=== PATIENT | female | born 1935 | race African-American/Black ===

== ENCOUNTER 2018-09-04 09:26 | Inpatient (IN) | payer MEDICARE, MEDICAID ==
[2018-09-04] VITALS (11 sets, daily range): BP systolic 98–190; BP diastolic 34–85
[~2018-09-04] VITALS: Ht 160 cm; Wt 85.3 kg
[~2018-09-04 09:26] MED LIST: HEPARIN SODIUM 1,000 UNIT/1ML VIAL IV ONE
[2018-09-04 11:40] LABS: CHLORIDE 110 mEq/L (98-107)
[2018-09-04 11:42] LABS: BASOPHILS % 0.8 % (0.0-2.0); EOSINOPHILS % 1.7 % (0.0-5.0); HEMATOCRIT. 36.8 % (36.0-48.0); HEMOGLOBIN. 11.9 g/dL (12.0-16.0); MEAN CORPUSCULAR HEMOGLOBIN 27.3 pg (28.0-32.0); MEAN CORPUSCULAR VOLUME 84.3 fL (81.0-99.0); MEAN PLATELET VOLUME 9.4 fl (7.4-10.4); MONOCYTES % 8.4 % (2.0-8.0); NEUTROPHILS % 48.1 % (40.0-76.0); PLATELET 272 x1000/uL (130-400); RED BLOOD CELL COUNT 4.36 mill/uL (4.2-5.4); RED CELL DISTRIBUTION WIDTH 14.5 % (11.6-14.6)
[2018-09-04] MEDS ORDERED: IOHEXOL-300 100 ML BOTTLE ONE (12:15)
[2018-09-04] MEDS ORDERED: LIDOCAINE HCL 1% 20ML VIAL (Pyxis) INJ ONE (12:16)
[2018-09-04] MEDS ORDERED: IODIXANOL 320MG/ML 100 ML BOTTLE IV ONE (12:16)
[2018-09-04] MEDS ORDERED: FERR325T6 PO (12:35)
[2018-09-04] MEDS ORDERED: GABA-531 PO (12:35)
[2018-09-04] MEDS ORDERED: AMLO10TA80 PO (12:35)
[2018-09-04] MEDS ORDERED: MIDAZOLAM HCL 2 MG/2 ML VIAL ONE (12:39)
[2018-09-04] MEDS ORDERED: LOSA25TA12 PO (12:39)
[2018-09-04] MEDS ORDERED: CLOP75TA16 PO (12:39)
[2018-09-04] MEDS ORDERED: FENTANYL CITRATE/PF 50MCG/ML 2ML VIAL ONE (12:40)
[2018-09-04] MEDS ORDERED: ASPIRIN 325MG TABLET ONE (13:35)
[2018-09-04] MEDS ORDERED: CLOPIDOGREL 75MG TABLET ONE (13:35)
[2018-09-04] MEDS ORDERED: ONDANSETRON HCL 4MG/2ML INJ IV PRN (13:45)
[2018-09-04] MEDS ORDERED: ATROPINE SULFATE 1MG/10ML SYR IV PRN (13:45)
[2018-09-04] MEDS: ACETAMINOPHEN 325MG TABLET PO PRN (20:36)
[2018-09-05] VITALS (9 sets, daily range): BP systolic 96–140; BP diastolic 50–71
[2018-09-05 05:50] LABS: BASOPHILS % 0.7 % (0.0-2.0); EOSINOPHILS % 1.6 % (0.0-5.0); HEMATOCRIT. 30.9 % (36.0-48.0); HEMOGLOBIN. 10.2 g/dL (12.0-16.0); LYMPHOCYTES % 28.4 % (20.0-50.0); MEAN CORPUSCULAR HEMOGLOBIN 27.7 pg (28.0-32.0); MEAN CORPUSCULAR VOLUME 83.7 fL (81.0-99.0); MEAN PLATELET VOLUME 9.3 fl (7.4-10.4); NEUTROPHILS % 60.3 % (40.0-76.0); PLATELET 219 x1000/uL (130-400); RED BLOOD CELL COUNT 3.69 mill/uL (4.2-5.4); RED CELL DISTRIBUTION WIDTH 14.1 % (11.6-14.6)
[2018-09-05 05:59] LABS: CHLORIDE 109 mEq/L (98-107)
[2018-09-05] MEDS ORDERED: CLOPIDOGREL 75MG TABLET PO SCH (09:00)
[2018-09-05] MEDS ORDERED: ASPIRIN 325MG TABLET PO SCH (09:00)
[2018-09-05] MEDS: ACETAMINOPHEN 325MG TABLET PO PRN (09:06)
== END 2018-09-05 15:54 | disposition home or self-care (01) | DRG 253 ==
LOC: CCL 09:26 → 3WST 09:27
PROVIDERS: ADMIT Specialist; ATTEND Specialist
PROC: 047L35Z Dilation of Left Femoral Artery with Two Drug-eluting Intraluminal Devices, Percutaneous Approach (ICD-10-PCS; principal; 2018-09-04)
PROC: B41G1ZZ Fluoroscopy of Left Lower Extremity Arteries using Low Osmolar Contrast (ICD-10-PCS; 2018-09-04)
DX: E11.51 Type 2 diabetes mellitus with diabetic peripheral angiopathy without gangrene (principal); D62 Acute posthemorrhagic anemia; I25.10 Atherosclerotic heart disease of native coronary artery without angina pectoris; I70.202 Unspecified atherosclerosis of native arteries of extremities, left leg; I15.0 Renovascular hypertension; Z79.84 Long term (current) use of oral hypoglycemic drugs; Z91.5 Personal history of self-harm
CPT/HCPCS: 36415; 37226; 75710; 80048; 85347; C1725; C1760; C1769; C1876; C1893; C1894; J1644; J2250; J3010; J3490; Q9967

== ENCOUNTER 2018-10-03 06:07 | Inpatient (IN) | payer MEDICARE, MEDICAID ==
[~2018-10-03] VITALS: Ht 160 cm; Wt 84.5 kg
[2018-10-03] VITALS (7 sets, daily range): BP systolic 110–143; BP diastolic 51–71
[~2018-10-03 06:07] MED LIST changes: +AMLO10TA80 PO; +CLOP75TA16 PO; +FERR325T6 PO; +GABA-531 PO; -HEPARIN SODIUM 1,000 UNIT/1ML VIAL IV ONE; +LOSA25TA12 PO
[2018-10-03] MEDS ORDERED: ERGO400C PO (07:54)
[2018-10-03] MEDS ORDERED: ASPI-1158 PO (07:54)
[2018-10-03] MEDS ORDERED: IODIXANOL 320MG/ML 100 ML BOTTLE IV ONE ×2 (07:58→10:09)
[2018-10-03] MEDS ORDERED: IOHEXOL-300 100 ML BOTTLE ONE (07:58)
[2018-10-03] MEDS ORDERED: LIDOCAINE HCL 1% 20ML VIAL (Pyxis) INJ ONE (07:58)
[2018-10-03] MEDS ORDERED: FENTANYL CITRATE/PF 50MCG/ML 2ML VIAL ONE (08:41)
[2018-10-03] MEDS ORDERED: MIDAZOLAM HCL 2 MG/2 ML VIAL ONE (08:41)
[2018-10-03] MEDS ORDERED: CLOPIDOGREL 75MG TABLET ONE (10:43)
[2018-10-03] MEDS ORDERED: ASPIRIN 325MG TABLET ONE (10:43)
[2018-10-03] MEDS ORDERED: ONDANSETRON HCL 4MG/2ML INJ IV PRN (11:00)
[2018-10-03] MEDS ORDERED: ATROPINE SULFATE 1MG/10ML SYR IV PRN (11:00)
[2018-10-03] MEDS ORDERED: ACETAMINOPHEN 325MG TABLET PO PRN (11:00)
[2018-10-03] MEDS ORDERED: HEPARIN SODIUM 1,000 UNIT/1ML VIAL IV ONE (14:05)
[2018-10-04 00:10] VITALS: BP 117/57
[2018-10-04 02:00] VITALS: BP 129/72
[2018-10-04 04:00] VITALS: BP 117/62
[2018-10-04 06:00] VITALS: BP 142/65
[2018-10-04 06:44] LABS: BASOPHILS % 0.7 % (0.0-2.0); EOSINOPHILS % 1.2 % (0.0-5.0); HEMATOCRIT. 32.3 % (36.0-48.0); HEMOGLOBIN. 10.6 g/dL (12.0-16.0); LYMPHOCYTES % 29.9 % (20.0-50.0); MEAN CORPUSCULAR HEMOGLOBIN 27.4 pg (28.0-32.0); MEAN CORPUSCULAR VOLUME 83.5 fL (81.0-99.0); MEAN PLATELET VOLUME 9.9 fl (7.4-10.4); MONOCYTES % 9.3 % (2.0-8.0); NEUTROPHILS % 58.9 % (40.0-76.0); PLATELET 231 x1000/uL (130-400); RED BLOOD CELL COUNT 3.87 mill/uL (4.2-5.4); RED CELL DISTRIBUTION WIDTH 14.4 % (11.6-14.6)
[2018-10-04 06:52] LABS: CHLORIDE 107 mEq/L (98-107)
[2018-10-04 08:24] VITALS: BP 105/53
[2018-10-04] MEDS ORDERED: ASPIRIN 325MG TABLET PO SCH (09:00)
[2018-10-04] MEDS ORDERED: CLOPIDOGREL 75MG TABLET PO SCH (09:00)
[2018-10-04 10:29] VITALS: BP_SYST 105; BP_SYST 106; BP_DIAS 53; BP_DIAS 56
== END 2018-10-04 11:54 | disposition home or self-care (01) | DRG 253 ==
LOC: CCL 06:07 → 3WST 06:08
PROVIDERS: ADMIT Specialist; ATTEND Specialist
PROC: B41F1ZZ Fluoroscopy of Right Lower Extremity Arteries using Low Osmolar Contrast (ICD-10-PCS; principal; 2018-10-03)
PROC: 047K3DZ Dilation of Right Femoral Artery with Intraluminal Device, Percutaneous Approach (ICD-10-PCS; 2018-10-03)
PROC: 047T34Z Dilation of Right Peroneal Artery with Drug-eluting Intraluminal Device, Percutaneous Approach (ICD-10-PCS; 2018-10-03)
DX: E11.51 Type 2 diabetes mellitus with diabetic peripheral angiopathy without gangrene (principal); I70.92 Chronic total occlusion of artery of the extremities; I70.211 Atherosclerosis of native arteries of extremities with intermittent claudication, right leg; D63.8 Anemia in other chronic diseases classified elsewhere; E88.81 Metabolic syndrome and other insulin resistance; I11.9 Hypertensive heart disease without heart failure; I15.0 Renovascular hypertension; I25.10 Atherosclerotic heart disease of native coronary artery without angina pectoris; I70.1 Atherosclerosis of renal artery; Z79.02 Long term (current) use of antithrombotics/antiplatelets; Z79.82 Long term (current) use of aspirin
CPT/HCPCS: 36415; 37226; 37230; 75710; 80048; 82962; 85347; C1714; C1725; C1760; C1769; C1874; C1876; C1887; C1893; C1894; J1644; J2250; J3010; J3490; Q9967

== ENCOUNTER 2018-11-07 08:04 | Day surgery (SDC) | payer MEDICARE, MEDICAID ==
[~2018-11-07] VITALS: Ht 160 cm; Wt 76.7 kg
[~2018-11-07 08:04] MED LIST changes: +ASPI-1158 PO; +ERGO400C PO
[2018-11-07] MEDS ORDERED: IODIXANOL 320MG/ML 100 ML BOTTLE IV ONE (09:13)
[2018-11-07] MEDS ORDERED: LIDOCAINE HCL 1% 20ML VIAL (Pyxis) INJ ONE (09:13)
[2018-11-07] MEDS ORDERED: ATROPINE SULFATE 0.1MG/ML 10ML DISP.SYRIN ONE (09:25)
[2018-11-07] MEDS ORDERED: FENTANYL CITRATE/PF 50MCG/ML 2ML VIAL ONE (09:26)
[2018-11-07] MEDS ORDERED: MIDAZOLAM HCL 2 MG/2 ML VIAL ONE (09:26)
[2018-11-07] MEDS ORDERED: ONDANSETRON HCL 4MG/2ML INJ IV PRN (11:30)
[2018-11-07] MEDS ORDERED: ATROPINE SULFATE 1MG/10ML SYR IV PRN (11:30)
[2018-11-07] MEDS ORDERED: ACETAMINOPHEN 325MG TABLET PO PRN (11:30)
[2018-11-07] MEDS ORDERED: HEPARIN SODIUM 1,000 UNIT/1ML VIAL IV ONE (16:41)
== END 2018-11-07 16:00 | disposition home or self-care (01) ==
LOC: CCL 08:04
PROVIDERS: ATTEND Specialist
DX: I65.21 Occlusion and stenosis of right carotid artery (principal); I10 Essential (primary) hypertension; I70.1 Atherosclerosis of renal artery; I25.10 Atherosclerotic heart disease of native coronary artery without angina pectoris; E78.5 Hyperlipidemia, unspecified; E11.51 Type 2 diabetes mellitus with diabetic peripheral angiopathy without gangrene; E88.81 Metabolic syndrome and other insulin resistance
CPT/HCPCS: 36222; 36252; 82962; 99152; C1725; C1760; C1769; C1893; J1644; J2250; J3010; J3490; Q9967; J0461; G0500

== ENCOUNTER 2019-08-29 09:36 | Emergency (ER) | payer MEDICARE, MEDICAID ==
[~2019-08-29] VITALS: Ht 160 cm; Wt 74.0 kg
[~2019-08-29 09:36] MED LIST changes: -CLOP75TA16 PO; +CLOP75TA4 PO; -GABA-531 PO; -LOSA25TA12 PO; +LOSA25TA26 PO
[2019-08-29] MEDS ORDERED: FAMOTIDINE 20MG/2ML VIAL IV STA (11:01)
[2019-08-29] MEDS ORDERED: MORPHINE SULFATE 4 MG/ML CPJ (NOT FOR IM USE) IV STA (11:01)
[2019-08-29] MEDS ORDERED: ONDANSETRON HCL 4MG/2ML INJ IV STA (11:01)
[2019-08-29] MEDS ORDERED: SODIUM CHLORIDE 0.9% 1,000 ML IV ONE (11:01)
[2019-08-29 11:32] LABS: BASOPHILS % 0.7 % (0.0-2.0); EOSINOPHILS % 1.5 % (0.0-5.0); HEMATOCRIT. 32.7 % (36.0-48.0); LYMPHOCYTES % 40.3 % (20.0-50.0); MEAN CORPUSCULAR HEMOGLOBIN 28.6 pg (28.0-32.0); MEAN CORPUSCULAR VOLUME 84.8 fL (81.0-99.0); MEAN PLATELET VOLUME 9.4 fl (7.4-10.4); MONOCYTES % 10.7 % (2.0-8.0); NEUTROPHILS % 46.8 % (40.0-76.0); PLATELET 222 x1000/uL (130-400); RED BLOOD CELL COUNT 3.85 mill/uL (4.2-5.4); RED CELL DISTRIBUTION WIDTH 13.9 % (11.6-14.6)
[2019-08-29 11:46] LABS: CHLORIDE 106 mEq/L (98-107)
[2019-08-29 11:47] LABS: CLARITY URINE CLEAR (CLEAR); COLOR URINE YELLOW (YELLOW); KETONES URINE NEGATIVE (NEGATIVE); LEUKOCYTE ESTERASE URINE 1+ (NEGATIVE); NITRITE URINE NEGATIVE (NEGATIVE); OCCULT BLOOD URINE 2+ (NEGATIVE); PH URINE 6.5 (4.5-8.0); PROTEIN URINE NEGATIVE (NEGATIVE); SPECIFIC GRAVITY URINE 1.021 (1.005-1.030)
[2019-08-29 12:07] LABS: PROTHROMBIN TIME 10.3 sec (9.6-11.0)
[2019-08-29] MEDS ORDERED: CEFTRIAXONE 1 G PREMIX 50 ML IV ONE (12:45)
[2019-08-29 13:43] VITALS: BP 118/53
== END 2019-08-29 14:02 | disposition home or self-care (01) ==
LOC: ER 09:36
DX: N39.0 Urinary tract infection, site not specified (principal); I11.9 Hypertensive heart disease without heart failure; E78.00 Pure hypercholesterolemia, unspecified; Z98.890 Other specified postprocedural states; Z79.899 Other long term (current) drug therapy; Z95.5 Presence of coronary angioplasty implant and graft
CPT/HCPCS: 36415; 71045; 76705; 80053; 81003; 83690; 84484; 85025; 85610; 87086; 93005; 96365; 96375; 99284; J0696; J2405; J3490; J7030

== ENCOUNTER → 2020-05-03 | Outpatient (CLI) | payer MEDICARE, MEDICAID | END | disposition home or self-care (01) | LOC: LAB 09:48 | PROVIDERS: ATTEND Specialist | DX: R05 Cough (principal); Z20.828 Contact with and (suspected) exposure to other viral communicable diseases | CPT/HCPCS: C9803; U0003 ==

== ENCOUNTER 2020-05-05 06:10 | Inpatient (IN) | payer MEDICARE, MEDICAID ==
[~2020-05-05] VITALS: Ht 160 cm; Wt 78.9 kg
[2020-05-05] VITALS (8 sets, daily range): BP systolic 119–143; BP diastolic 50–67
[2020-05-05] MEDS ORDERED: MIDAZOLAM HCL 2 MG/2 ML VIAL ONE (08:00)
[2020-05-05] MEDS ORDERED: FENTANYL CITRATE/PF 50MCG/ML 2ML VIAL ONE (08:00)
[2020-05-05] MEDS ORDERED: IODIXANOL 320MG/ML 100 ML BOTTLE IV ONE (08:02)
[2020-05-05] MEDS ORDERED: LIDOCAINE HCL 1% 20ML VIAL (Pyxis) INJ ONE (08:02)
[2020-05-05] MEDS ORDERED: IOHEXOL-300 100 ML BOTTLE ONE (09:21)
[2020-05-05] MEDS ORDERED: CLOPIDOGREL 75MG TABLET ONE (09:49)
[2020-05-05] MEDS ORDERED: ASPIRIN 325MG TABLET ONE (09:49)
[2020-05-05] MEDS ORDERED: HEPARIN SODIUM 1,000 UNIT/1ML VIAL IV ONE (10:00)
[2020-05-05] MEDS ORDERED: ATROPINE SULFATE 1MG/10ML SYR IV PRN (10:00)
[2020-05-05] MEDS ORDERED: ACETAMINOPHEN 325MG TABLET PO PRN (10:00)
[2020-05-05] MEDS ORDERED: HYDROCODONE/ACETAMINOPHEN 5/325MG TABLET PO PRN (11:15)
[2020-05-05] MEDS ORDERED: GABAPENTIN 300MG CAPSULE PO SCH (20:00)
[2020-05-06] VITALS (7 sets, daily range): BP systolic 104–128; BP diastolic 55–64
[2020-05-06 07:14] LABS: BASOPHILS % 0.5 % (0.0-2.0); EOSINOPHILS % 1.5 % (0.0-5.0); HEMATOCRIT. 29.3 % (36.0-48.0); HEMOGLOBIN. 9.7 g/dL (12.0-16.0); MEAN CORPUSCULAR HEMOGLOBIN 28.7 pg (28.0-32.0); MEAN CORPUSCULAR VOLUME 86.2 fL (81.0-99.0); MONOCYTES % 10.1 % (2.0-8.0); NEUTROPHILS % 58.9 % (40.0-76.0); PLATELET 199 x1000/uL (130-400); RED CELL DISTRIBUTION WIDTH 14.9 % (11.6-14.6)
[2020-05-06 07:36] LABS: CHLORIDE 112 mEq/L (98-107)
[2020-05-06] MEDS ORDERED: MEDICATION NOT ON FORMULARY EA (Ferrous Sulfate 325 MG) PO SCH (09:00)
[2020-05-06] MEDS ORDERED: ASPIRIN 325MG TABLET PO SCH (09:00)
[2020-05-06] MEDS ORDERED: AMLODIPINE 10MG TABLET PO SCH (09:00)
[2020-05-06] MEDS ORDERED: CLOPIDOGREL 75MG TABLET PO SCH (09:00)
[2020-05-06] MEDS ORDERED: FERROUS SULFATE 325MG TABLET PO SCH (09:00)
[2020-05-06] MEDS ORDERED: ERGOCALCIFEROL 400 UNIT PO SCH (09:00)
[2020-05-06] MEDS ORDERED: CHOLECALCIFEROL (VIT D3) 400 UNIT TABLET PO SCH (09:00)
[2020-05-06] MEDS ORDERED: LOSARTAN POTASSIUM 25 MG TABLET PO SCH (09:00)
== END 2020-05-06 11:27 | disposition home or self-care (01) | DRG 253 ==
LOC: CCL 06:10 → 3WST 06:11
PROVIDERS: ADMIT Specialist; ATTEND Specialist
PROC: 047K3EZ Dilation of Right Femoral Artery with Two Intraluminal Devices, Percutaneous Approach (ICD-10-PCS; principal; 2020-05-05)
PROC: B41F1ZZ Fluoroscopy of Right Lower Extremity Arteries using Low Osmolar Contrast (ICD-10-PCS; 2020-05-05)
DX: I70.201 Unspecified atherosclerosis of native arteries of extremities, right leg (principal); G45.1 Carotid artery syndrome (hemispheric); E78.5 Hyperlipidemia, unspecified; I11.9 Hypertensive heart disease without heart failure; I15.0 Renovascular hypertension; I25.10 Atherosclerotic heart disease of native coronary artery without angina pectoris; I70.1 Atherosclerosis of renal artery; R73.9 Hyperglycemia, unspecified
CPT/HCPCS: 36415; 37226; 75710; 80048; 82962; 85025; 85347; C1725; C1760; C1769; C1876; C1893; C1894; J1644; J2250; J3010; J3490; Q9967; C9803-CS; U0003-CS

== ENCOUNTER → 2021-01-11 | Outpatient (CLI) | payer MEDICARE, MEDICAID ==
[~2021-01-11] MED LIST changes: -ASPI-1158 PO; +ASPI-1406 PO; +CLOP-31 PO; -CLOP75TA4 PO
== END | disposition home or self-care (01) ==
LOC: LAB 10:36
PROVIDERS: ATTEND Specialist
DX: Z01.812 Encounter for preprocedural laboratory examination (principal); R05 Cough; Z20.822 Contact with and (suspected) exposure to COVID-19
CPT/HCPCS: 87426

== ENCOUNTER → 2021-01-12 | Day surgery (SDC) | payer MEDICARE, MEDICAID ==
[~2021-01-12] MED LIST changes: +IOPAMIDOL 61% 300/15 ML VIAL IT ONE; +LIDOCAINE HCL 1% 20ML VIAL (Pyxis) INJ ONE; +SODIUM BICARBONATE 4% (2.4MEQ) 5ML VIAL IV ONE
== END | disposition home or self-care (01) ==
LOC: RAD 10:29
PROVIDERS: ATTEND Specialist
DX: E04.1 Nontoxic single thyroid nodule (principal); Z79.82 Long term (current) use of aspirin; Z79.899 Other long term (current) drug therapy; Z72.89 Other problems related to lifestyle; Z98.890 Other specified postprocedural states
CPT/HCPCS: 10005; 88172; 88173; J3490; Q9967